=== PATIENT | female | born 1960 ===

== ENCOUNTER → 2023-11-20 09:55 | Outpatient (CLI) | payer MEDICARE, SELFPAY ==
[2023-11-20 10:41] LABS: Influenza A - CEPHEID Flu A POSITIVE (NEGATIVE); Influenza B - CEPHEID Flu B NEGATIVE (NEGATIVE); Respiratory Syncytial Virus Negative (Negative)
[2023-11-20 10:42] LABS: COVID-19 CEPHEID 4-PLEX PCR Negative (Negative)
== END ==
PROVIDERS: Visit Provider Physician Assistant Surgical
DX: R05.9 Cough, unspecified (principal)
CPT/HCPCS: 0241U